=== PATIENT | male | born 1950 | race Caucasian/White ===

== ENCOUNTER → 2017-05-17 | Outpatient (CLI) | payer OTHER, MEDICARE ==
[~2017-05-17] VITALS: Ht 177.8 cm; Wt 106.6 kg
[~2017-05-17] MED LIST: ATENOLOL 50MG T50 M1 PO; DICLOFENAC SODI75 MG PO; OMEPRAZOLE20 M2 PO; SELENIMIN200 MCG PO; SIMVASTATIN40 MG PO; TRAZODONE HCL50 MG PO
--- NOTE | ~2017-05-17 | HPC ---
[facility] [address] [place] [address] PAIN MANAGEMENT CONSULTATION Name: RUTHIE MATA JR Room #: REG [facility].#: [id number] Admission: 05/17/17 Attend Phys: Michael Thompson MD Discharge: Date of : 48 Report #: [id number] THIS REPORT FOR: //name// CC: Alcon Davis MD DATE OF SERVICE: 05/17/2017 CHIEF COMPLAINT: Pain in the back and down into the right leg. FOLLOWUP HISTORY: The patient is a 66-year-old gentleman who has been referred to the pain clinic for evaluation of back and leg pain. He is experiencing pain, which has been problematic since April 13. He is experiencing pain which radiates down into his right low back, buttock and into the right leg. He notes that the pain is made worse with walking, standing and activities of daily living. He rates his pain as 5/10 at this juncture. There is burning, shooting and sharp component to it; sitting down in a recliner can provide some relief. He has tried diclofenac 75 mg. He has not had back surgery. The patient has undergone physical therapy. ALLERGIES: DEMEROL. MEDICATIONS: Diclofenac 75 mg b.i.d., Trazodone 50 mg at bedtime, omeprazole 20 mg daily, simvastatin 40 mg daily, atenolol 50 mg daily, selenium 200 mcg. PAST MEDICAL HISTORY: Rheumatic fever, hypertension, fractured leg with ORIF. PAST SURGICAL HISTORY: Carpal tunnel, right hand, 11/22/2010; deviated septum 01/2009; vasectomy 1974; broken leg with ORIF IM placement 04/2012. SOCIAL HISTORY: He is retired, has not worked in the last 7 years. Denies use of tobacco at this juncture. Drinks 5-7 alcoholic beverages per week. REVIEW OF SYSTEMS: A 14-point indicates generally good health, fatigue and weakness, cataracts, hearing loss, numbness and tingling sensation in the lower extremities as described in the HPI above. LABORATORY DATA: MRI of the lumbar spine dated 04/24/2017 reveals; 1. L3-L4 disk space narrowing and disk desiccation. There is a subtle posterior zone of hyperintensity consistent with a small annular tear. The bulging is slightly paracentric to the right and greatest on the right lateral recess. There is moderate bilateral hypertrophic degenerative facet disease and interspinal spurring. Ligamentum flavum is thickened at 4 mm. There is right [address] [address] PAIN MANAGEMENT CONSULTATION Name: RUTHIE MATA V Room #: REG [facility]#: [id number] Admission: 05/17/17 Attend Phys: Michael Thompson MD Discharge: Date of : 48 Report #: [id number] lateral recess narrowing and bilateral neural foraminal stenosis with effacement of the undersurface of both exiting L3 nerves. 2. L4-L5 broad-based left paracentral disk protrusion. There is hyperintense signal noted within the disk protrusion measuring 10 mm transverse consistent with an annular tear. There is left lateral recess narrowing and effacement of the left L5 nerve root within the lateral recess. The AP diameter of the central canal is 10 mm. There is mild bilateral neural foraminal narrowing with mild effacement of the undersurface of the right L4 nerve. There is mild facet arthrosis with mild ligamentum flavum thickening at 4 mm. 2. L5-S1 unremarkable. PHYSICAL EXAMINATION: Blood pressure 124/58, pulse 63, respiratory rate 16, room air saturation 97. Height 5 feet 10 inches, weight 235 pounds, BMI is 33. The patient has pain in the low back area with radiation down into the left lower extremity in the L5-S1 distribution as well as pain in the right side. Pain is more problematic on the right today. IMPRESSION: 1. Lumbar radiculopathy, L5-S1 on the right today. 2. History of meralgia paresthetica, right leg. 3. Lumbar spondylosis. 4. Hypertension. RECOMMENDATIONS: We discussed the treatment options with the patient. A model was used to indicate the area of probable pathology. Risks and benefits of an epidural steroid injection were discussed. The patient elects to proceed. PROCEDURE NOTE: The patient was placed in the prone position. Fluoroscopy was used to identify the L5-S1 interspace on the right. This area had been sterilely prepped with Betadine and infiltrated with 0.25% bupivacaine. Total of 80 mg Depo-Medrol, 40 mg triamcinolone and 2 mL of 0.25% bupivacaine was injected. The patient tolerated the procedure well. Fluoroscopy time of 6 seconds was used. We had already discussed the possible complications which could include but are not limited to infection, increased muscle soreness, headache, bleeding and muscle trauma as well as nerve trauma. By: [id number] Michael Thompson MD /
[2017-05-17 13:11] VITALS: BP 124/58
== END | disposition home or self-care (01) ==
LOC: PAIN 07:32
DX: M47.26 Other spondylosis with radiculopathy, lumbar region (principal); I10 Essential (primary) hypertension; R20.8 Other disturbances of skin sensation; Z68.33 Body mass index [BMI] 33.0-33.9, adult; Z98.890 Other specified postprocedural states; Z88.8 Allergy status to other drugs, medicaments and biological substances; Z79.899 Other long term (current) drug therapy; M54.16 Radiculopathy, lumbar region

== ENCOUNTER → 2017-09-27 | Outpatient (CLI) | payer OTHER, MEDICARE ==
[~2017-09-27] VITALS: Ht 177.8 cm; Wt 105.2 kg
[~2017-09-27] MED LIST changes: -ATENOLOL 50MG T50 M1 PO; +BAYER CHEWABLE81 MG PO; +EFFIENT10 MG PO; +HYDROCODONE-AP1 EAC6 PO; +LIPITOR80 MG PO; +LISINOPRIL10 MG PO; +LOPRESSOR50 PO; +MEDROLDOSEPACK PO; +NEURONTIN600 MG PO; +NITROGLYCERIN0.4 MG SUBLING; +PERCOCET 10-321 EACH PO; +VIAGRA100 MG PO
--- NOTE | ~2017-09-27 | HPC ---
[facility] [address] [address] PAIN MANAGEMENT CONSULTATION Name: RUTHIE MATA JR Room #: REG [facility] Neil.#: [id number] Admission: 09/27/17 Attend Phys: Michael Thompson MD Discharge: Date of : 48 Report #: [id number] THIS REPORT FOR: //name// CC: Alcon No DATE OF SERVICE: 09/27/2017 FOLLOWUP COMPLAINT: "Pain improved, but I noticed some worsening of the pain after I stood around doing some baking." FOLLOWUP HISTORY: The patient is a 66-year-old gentleman who has been seen in the pain clinic because of lumbar radiculopathy. He has been having pain and discomfort in the right L5-S1 dermatomal distribution. He has undergone epidural steroid injections and gleaned benefits from this. He has noted over the last few weeks some increase in pain and discomfort. He denies any new bowel or bladder dysfunction. Notes that the pain is worse when he gets up in the morning and gets somewhat better during the day, but still is quite problematic. He continues to have pain and discomfort, which radiates down into his right buttock, right thigh and the calf. He was given some gabapentin to take. He finds that that has helped some of the pain in the right lower calf, but still finds that the pain is still uncomfortable and rates it as a 4 with activity and a 3 while sitting. Still walking with a limp because of this. He has had no problem with the wound healing. MEDICATIONS: Neurontin 600 mg b.i.d., Percocet 10/325 one p.o. q.6 hours p.r.n. pain, aspirin 81 mg tablet, Voltaren 75 mg 1 p.o. b.i.d., trazodone 50 mg at bedtime, omeprazole 20 mg daily, Zocor 40 mg in the evening, metoprolol 50 mg daily, and selenium 200 mcg. PHYSICAL EXAMINATION: VITAL SIGNS: Blood pressure 132/77, pulse 60, respiratory rate 16, and room air saturation 97%. Height 5 feet 10 inches, weight 233 pounds, and BMI is 33. The patient has not fallen since we saw him last. Has pain and discomfort in the L5-S1 distribution of his right leg. HEENT: Unremarkable. NECK: Supple without adenopathy. CHEST: Clear. HEART: Regular rate. ABDOMEN: Nontender. NEUROLOGIC: The patient sits in his chair with his right leg extended. He is in a leaning position leaning backward. Complains of pain and discomfort with a positive straight leg raise on the right. Has pain in the right buttock radiating down the posterior portion of his thigh down into the calf area. Notes that the pain in the anterior portion of [place] [address] PAIN MANAGEMENT CONSULTATION Name: RUTHIE MATA JR Room #: REG [facility].#: [id number] Admission: 09/27/17 Attend Phys: Michael Thompson MD Discharge: Date of : 48 Report #: [id number] problematic since the use of gabapentin/Neurontin. The patient walks with an antalgic limp favoring his right leg. IMPRESSION: 1. Lumbar radiculopathy, L5-S1 distribution - improved after epidural steroid injection by greater than 50%. 2. The patient has undergone surgery. He had a surgeon, feels that he is continuing to heal reasonably well. 3. History of meralgia paresthetica involving the right leg. 4. Lumbar spondylosis. 5. Hypertension. 6. Hypercholesterolemia. RECOMMENDATIONS: We discussed treatment options with the patient. Risks and benefits of an epidural steroid injection were again discussed. Possible complications were explained. They could include, but are not limited to infection, increased muscle soreness, headache, bleeding, and nerve damage. The patient elects to proceed. PROCEDURE NOTE: The patient was placed in the prone position. Fluoroscopy was used to identify the L5-S1 interspace. This area had been sterilely prepped with Betadine and infiltrated with 0.25% bupivacaine. After appropriate placement of the needle using fluoroscopy in the anterior and lateral positioning, a 17-gauge Tuohy with loss of resistance technique was used to gain access to the epidural space. There was no CSF, heme, or paresthesia. A total of 80 mg Depo-Medrol, 40 mg triamcinolone, and 2 mL of 0.25% bupivacaine was injected. The patient tolerated the procedure well. Band-Aid was placed in the incision site, which was not bleeding. He was then taken to the recovery room where he remained for an appropriate amount of time. He will follow up in the future as needed. He will continue with his current medical regimen of Voltaren as a nonsteroidal anti-inflammatory medication, gabapentin to help with the nerve pain and irritation, and hydrocodone p.r.n. for worsening of leg pain. We would like to thank you for letting us participate in his care. We hope he continues to improve. <ELECTRONICALLY SIGNED> By: Michael Thompson MD 12/06/17 1121 [id number] [id number] NKalia Thompson MD /nt
[2017-09-27 10:37] VITALS: BP 132/77
== END | disposition home or self-care (01) ==
LOC: PAIN 06:12
DX: M47.26 Other spondylosis with radiculopathy, lumbar region (principal); G89.29 Other chronic pain; I10 Essential (primary) hypertension; E78.00 Pure hypercholesterolemia, unspecified; G57.11 Meralgia paresthetica, right lower limb; Z98.890 Other specified postprocedural states; Z79.899 Other long term (current) drug therapy; Z88.8 Allergy status to other drugs, medicaments and biological substances; Z79.82 Long term (current) use of aspirin; Z79.891 Long term (current) use of opiate analgesic

== ENCOUNTER → 2018-01-10 | Outpatient (CLI) | payer OTHER, MEDICARE ==
[~2018-01-10] VITALS: Ht 177.8 cm; Wt 104.0 kg
[~2018-01-10] MED LIST changes: -EFFIENT10 MG PO; -LIPITOR80 MG PO; -LISINOPRIL10 MG PO; -MEDROLDOSEPACK PO; -NITROGLYCERIN0.4 MG SUBLING; -VIAGRA100 MG PO
--- NOTE | ~2018-01-10 | HPC ---
[facility] [address] [place] [address] PAIN MANAGEMENT CONSULTATION Name: RUTHIE MATA Annamarie AMADO Room #: REG [facility] M.Suraj.#: [id number] Admission: 01/10/18 Attend Phys: Michael Thompson MD Discharge: Date of : 48 Report #: [id number] THIS REPORT FOR: //name// CC: Alcon No DATE OF SERVICE: 01/10/2018 FOLLOWUP COMPLAINT: Pain radiating down into the low back, right buttocks and outer calf. FOLLOWUP HISTORY: The patient is a 67-year-old gentleman who has been seen in the pain clinic in the past because of lumbar radiculopathy. He suffers from pain and discomfort down in the L5-S1 distribution. He has undergone epidural steroid injection in the past and gleaned benefits from this. He is experiencing some tingling tenderness and the sensation that his leg has been hit by a hammer. Pain is worse when he is walking, standing and improves somewhat when he lies in recliner and repositions his leg in and out were positioned. He has had epidural steroid injections and clean benefit from that. He returns today because the pain still was problematic and he rates it as an 8/10. He would like to proceed with another epidural steroid injection. Denies any change in bowel or bladder function. ALLERGIES: DEMEROL, ROPINIROLE. CURRENT MEDICATIONS: Neurontin 600 mg b.i.d., Percocet 10/325 one p.o. q. 6 hours p.r.n. pain, aspirin 81 mg, Voltaren 75 mg b.i.d., trazodone 50 mg at bedtime, omeprazole 20 mg daily, Zocor 40 mg in the evening, metoprolol 50 mg daily, selenium 200 mcg. PAIN CLINIC ASSESSMENT: 1. History of osteoarthritis. The patient has a history of lumbar spondylosis. 2. Height 5 feet 10 inches, weight 229 pounds, BMI is 32. 3. Vital Signs: Blood pressure 122/61, pulse 60, respiratory rate 16, room air saturation 97%. Pain intensity 05/04. 4. Fall risk. The patient has not fallen in the last 3 months. 5. Blood thinner. The patient is not on a blood thinner. 6. History of hypertension. The patient is being treated for hypertension. 7. Opioid therapy. The patient is not on opioid therapy contract. 8. Risk assessment tool. 9. Functional assessment tool. 10. Recreational drug use. 11. Tobacco. The patient has never smoked. 12. Alcohol. The patient drinks 5-6 alcoholic [place] [address] PAIN MANAGEMENT CONSULTATION Name: RUTHIE MATA V Room #: REG [facility]#: [id number] Admission: 01/10/18 Attend Phys: Michael Thompson MD Discharge: Date of : 48 Report #: [id number] PHYSICAL EXAMINATION: GENERAL: The patient is a well-developed white male. He appears his stated age. He is alert and oriented x 3. Affect is appropriate. Speech is fluent. HEENT: Normocephalic, atraumatic. Extraocular eye muscles intact. Sclerae nonicteric. Hearing within normal limits. Moist buccal membranes. NECK: Without adenopathy, bruits or JVD. HEART: Regular rate. ABDOMEN: Nontender. MUSCULOSKELETAL: Without significant scoliosis, kyphosis or lordosis. The patient has pain and discomfort radiating down to the right buttocks, right thigh and into his calf. He has received about 50% improvement in epidural steroid injection in the past. IMPRESSION: 1. Lumbar radiculopathy, L5-S1 distribution improved about 50% after the last injection. 2. History of meralgia paresthetica involving the right leg. 3. Lumbar spondylosis. 4. Hypertension. 5. Hypercholesterolemia. RECOMMENDATIONS: We discussed treatment options with the patient. Risks and benefits of another epidural steroid injection were again reviewed. They include but are not limited to infection, increased muscle soreness, headache, bleeding, worsening of pain, improvement in pain, spinal headache, nerve damage. PROCEDURE NOTE: The patient was assisted to the OR table. He was then helped in place. His lower back area was sterilely prepped with Betadine. Fluoroscopy using anterior, posterior as well as lateral imaging was used to identify the L5-S1 interspace. This area had been sterilely prepped with Betadine and infiltrated with 0.25% bupivacaine. Total of 80 mg Depo-Medrol, 40 mg triamcinolone and 2 mL of 0.25% bupivacaine was injected. The patient tolerated the procedure well. There were no complications. He remained in the Pain Clinic for appropriate amount of time. Total of 3 seconds fluoroscopy time was used. The patient's pain decreased from 8-1 at the time of discharge. He will follow up in the future as needed. We would like to thank you for letting us participate in his care. We hope he continues to improve. By: [id number] Michael Thompson MD /COY
[2018-01-10 09:35] VITALS: BP 122/61
== END | disposition home or self-care (01) ==
LOC: PAIN 06:58
DX: M54.16 Radiculopathy, lumbar region (principal); G89.29 Other chronic pain; M47.896 Other spondylosis, lumbar region; I10 Essential (primary) hypertension; E78.00 Pure hypercholesterolemia, unspecified; Z79.899 Other long term (current) drug therapy; Z79.82 Long term (current) use of aspirin; Z79.891 Long term (current) use of opiate analgesic; Z88.8 Allergy status to other drugs, medicaments and biological substances; Z98.890 Other specified postprocedural states

== ENCOUNTER 2019-10-17 06:12 | Inpatient (IN) | payer OTHER, MEDICARE ==
[2019-10-09 09:09] LABS: HEMATOCRIT 36.8 % (42.0-52.0); HEMOGLOBIN 12.6 gm/dL (14.0-18.0); MCH 31.9 pg (26.0-34.0); MCHC 34.1 g/dL (28.0-37.0); MCV 93.4 fL (80.0-100.0); RBC 3.94 mil/uL (4.50-6.00); RDW 13.2 % (10.5-14.5); WBC 6.6 thou/uL (4.0-11.0)
[2019-10-09 09:17] LABS: URINE BILIRUBIN NEGATIVE (Negative); URINE BLOOD TRACE (Negative); URINE CLARITY CLEAR; URINE COLOR YELLOW; URINE GLUCOSE-RANDOM* NEGATIVE (Negative); URINE KETONES NEGATIVE (Negative); URINE LEUKOCYTES-REFLEX NEGATIVE (Negative); URINE NITRITE-REFLEX NEGATIVE (Negative); URINE PROTEIN (DIPSTICK) NEGATIVE (Negative); URINE SPECIFIC GRAVITY 1.025 (1.005-1.035); URINE UROBILINOGEN 0.2 E.U./dl (0.2-1.0)
[2019-10-09 09:18] LABS: ALBUMIN 3.7 g/dL (3.4-5.0); CALCIUM 9.1 mg/dL (8.5-10.1); CREATININE 1.3 mg/dL (0.7-1.3); POTASSIUM 4.8 mmol/L (3.5-5.1)
[2019-10-09 09:20] LABS: PROTIME 10.1 Seconds (9.3-11.4)
[~2019-10-17] VITALS: Ht 177.8 cm; Wt 99.8 kg
--- NOTE | ~2019-10-17 | HC ---
[facility] [place] [address] [place] [address] CONSULTATION Name: RUTHIE MATA JR Room #: 206-P [facility] IN M.R.#: [id number] Admission: 10/17/19 Attend Phys: Vladimir Zavaleta MD Discharge: Date of : 48 Report #: [id number] THIS REPORT FOR: //name// CC: Vladimir Frank DATE OF SERVICE: 10/21/2019 HISTORY OF PRESENT ILLNESS: This is a 68-year-old male patient who was evaluated by me for neurological etiology for the patient's vision problem. He describes his vision problem that in the left eye there is a line in the center of the middle problem. Above the eye, it is all frederick. Below the eye it is all normal. This started spontaneously without any trauma. It looks like it started yesterday. He has not recovered, but has not become any worse either. Neurology consult was requested to evaluate the patient for TIA or CVA. I tried to see this patient twice this morning, but the patient was not available to be seen that time. So he was seen this evening. Since then, he had an MRI and MRA. I cannot neither find the film nor the report. The patient is pretty insistent that he had it and the records indicate that he had an MRI of the brain and MRA of the [place]. REVIEW OF SYSTEMS: His 14-point review of system was carried out. He had left knee problems for which he had a surgery done. He has a history of hypertension. He does have a history of coronary artery disease. He is on medications including gabapentin. That was his relevant 14-point review of system. PAST MEDICAL HISTORY: Negative for any stroke or TIA. FAMILY HISTORY: Unremarkable. PHYSICAL EXAMINATION: Indicate he is alert, responsive. His speech, concentration, fund of knowledge and memory is normal. Cranial nerve examination 2-12 indicates that his visual field is actually intact. He can count visual field in all locations, but he complained that everything is frederick in the upper half of the eye both in temporal and nasal alvarez. He does not have any other focal neurological deficit in the cranial nerves or neuromuscular allowing for his surgery. There is no meningeal sign. There is no carotid bruit. He is a very well-built individual. He does not have any dysmorphic features of eyes, ears and face. His vision and hearing looks adequate except as described above in the left eye. His blood pressure is 171/66, respiration is 20, pulse is 90, temperature is 98.6. LABORATORY DATA: White count is 11.6. Sodium is low at 131. Estimated GFR [place] 63[place] [id number] CONSULTATION Name: RUTHIE MATA Annamarie Room #: 206-P [facility] IN .R.#: [id number] Admission: 10/17/19 Attend Phys: Vladimir Zavaleta MD Discharge: Date of : 48 Report #: [id number] IMPRESSION: It is unlikely that the patient's symptoms are because of neurological etiology. We will try to trace down the MRI. If that is also unremarkable, then neurological etiology will be even less likely. The emphasis should be to exclude any ophthalmology pathology in this patient. I discussed that aspect with the patient. I did tell him that he needs to see an outreach associate as soon as possible because there is only a limited time when ophthalmology conditions can be evaluated and managed. Even if he did have a neurological etiology like stroke, nothing can be done because symptom appeared to be much more than 24-hour duration and he just had a recent major surgery. We will try to locate the MRI and MRA to be sure, but the emphasis should be to get an Ophthalmology evaluation as soon as possible. This patient will be discussed with the security intelligence analyst. By: [id number] Linden Nuñez MD /nt
[~2019-10-17 06:12] MED LIST changes: +EFFIENT10 MG PO; +IRBESARTAN150 MG PO; +LIPITOR80 MG PO; +LISINOPRIL10 MG PO; +MEDROLDOSEPACK PO; +NITROGLYCERIN0.4 MG SUBLING; +VIAGRA100 MG PO
[2019-10-17 07:30] VITALS: BP 118/55
--- NOTE | 2019-10-17 13:28 | NUR ---
PT ARRIVED FROM POST OP AT 1040. AT BEDSIDE. ADMISSION PAPERWORK COMPLETETED. IV FLUIDS STARTED. PICCO DRESSING INTACT TO LEFT KNEE. ICE PACK FOR COMFORT. V.S. 98.0 18 71 122/64 O2 SAT =96%RA HEIGHT = 5' 10" PT CLEAR LIQUID DIET. REGULAR FOR DINNER. PT GIVEN PRN PAIN MED. HEMO VAC EMPTIED HAD 350 CC. PT PLEASANT AND COOPERATIVE WITH CARE.
[2019-10-17 15:48] VITALS: BP 150/55
[2019-10-17 19:01] VITALS: BP 131/51
--- NOTE | 2019-10-18 02:34 | NUR ---
L KNEE WITH SHIRLEY DRSG AND HEMOVAC. ICE HARJIT APPLIED ON AND OFF. PT USING URINAL.AFEBRILE. PAIN WELL CONTROLLED WITH PO MEDS. PT MOVING BOTH LEGS MUCH POSSIBLE.AFEBRILE.PROGRESSING TOWARDS GOALS.
[2019-10-18 03:54] VITALS: BP 148/52
[2019-10-18 05:43] LABS: HEMATOCRIT 27.9 % (42.0-52.0); HEMOGLOBIN 9.4 gm/dL (14.0-18.0); MCH 32.1 pg (26.0-34.0); MCHC 33.6 g/dL (28.0-37.0); MCV 95.3 fL (80.0-100.0); RBC 2.93 mil/uL (4.50-6.00); RDW 13.2 % (10.5-14.5); WBC 13.8 thou/uL (4.0-11.0)
[2019-10-18 07:42] VITALS: BP 154/52
--- NOTE | 2019-10-18 07:51 | O ---
[facility] [place] [address] [place] [address] OPERATIVE REPORT Name: RUTHIE MATA JR Room #: 441-P ADM IN M.R.#: [id number] Admission: 10/17/19 Attend Phys: Vladimir Zavaleta MD Discharge: Date of : 48 Report #: [id number] THIS REPORT FOR: //name// CC: Vladimir Frank DATE OF SERVICE: 10/17/2019 PREOPERATIVE DIAGNOSIS: End-stage degenerative arthritis, left knee. POSTOPERATIVE DIAGNOSIS: End-stage degenerative arthritis, left knee. PROCEDURE: Left total knee arthroplasty. SURGEON: Vladimir Zavaleta MD INDICATIONS: This active 68-year-old gentleman has problems with degenerative arthritis in both knees. The right side is related to previous trauma. The left side is more generalized degenerative change, both knees are uncomfortable, but the left knee is the most severe at this point, he has tried conservative measures without much benefit. He has decided to go ahead with left total knee arthroplasty. DESCRIPTION OF PROCEDURE: The patient was taken to the operating room where he was placed under general anesthesia. A femoral nerve block was also applied. The left lower extremity was meticulously prepped and draped. A thigh tourniquet was applied and inflated to 300 mmHg. An anterior longitudinal skin incision was made and carried through the medial retinaculum and the patella was reflected laterally and marked degenerative change in all 3 compartments was noted. The knee was noted to be in moderate varus malalignment. The Green and Nephew knee system was utilized. Intramedullary guides were used on both the femur and the tibia. The femur was cut in 5 degrees of valgus and the tibia cut perpendicular to the long axis of the bone. This resulted in satisfactory improvement in his preoperative varus malalignment. The femur was best suited for a size 6 left femoral component. The tibia was best suited for a size 5 left tibial component. A trial reduction was performed and a 10 mm polyethylene insert resulted in satisfactory alignment, range of motion and stability. Sufficient bone was resected from the distal femur to correct the mild preoperative flexion contracture with the new trials in place, the knee demonstrated full knee extension and flexion beyond 130 degrees with good stability in varus valgus stress. The patellar surface was resected and a 35 mm patellar button fit nicely. Appropriate anchor holes were created. A trial button was applied and the patella seems to track nicely and appears to be in good position. The trial components were removed. The bony surfaces were thoroughly irrigated [address] [address] OPERATIVE REPORT Name: EWACASTRORUTHIE De Luna Room #: 441-P [facility] IN ..#: [id number] Admission: 10/17/19 Attend Phys: Vladimir Zavaleta MD Discharge: Date of : 48 Report #: [id number] and dried. The intramedullary canal was blocked with a bone block on both the femoral and tibial sides. Methyl methacrylate cement was mixed and injected into the porous surface of the proximal tibia. The Green and Nephew left size 5 Lori II nonporous tibial baseplate was inserted. This was positioned appropriately and impacted into place. Excess cement was removed from around its margin. A size 10 mm cruciate retaining polyethylene insert was then inserted. This was snapped into position and seated nicely and appeared to be secure. A size 6 left cruciate retaining porous Legion femoral component was applied. A small amount of cement was used distally at the anchor lugs where the bone was mildly soft. The component seemed to seat nicely and appeared to be very secure. A 35 mm patellar button was cemented into place using appropriate anchor holes and cement. This was secured with a patellar clamp until the cement had fully hardened. All excess cement was removed from around its margin. Once the components were secure, range of motion, alignment and stability were once again assessed and felt to be satisfactory. The knee demonstrates full knee extension and flexion beyond 130 degrees. There was good stability with varus valgus stress. The patellar tracks nicely and appears to be stable. The wound was copiously irrigated. A single Hemovac was left in the wound exiting through a separate stab incision. The fascia was closed with multiple #1 Vicryl sutures. The tourniquet was deflated after a total tourniquet time of 56 minutes. Good hemostasis was confirmed. The subcutaneous tissues were closed with 0 Monocryl. The skin was closed with skin phoebe. A sterile dressing was applied. The patient was awakened and returned to recovery room in good condition. <ELECTRONICALLY SIGNED> By: Vladimir Zavaleta MD 10/18/19 0751 [id number] [id number] Vladimir Zavaleta MD /nt
--- NOTE | 2019-10-18 15:50 | NUR ---
ASSESSMENT-PT LIVES AT HOME WITH HIS . PRIOR TO ADMISSION PT WAS USING A WALKING STICK TO GET AROUND AND DID HIS OWN ADLS. ABLE TO ASSIST AT HOME AND THEY HAVE A DTR IN THE AREA. PRIOR PT DROVE. PT HAS 3 STEPS TO ENTER THEN BEDROOM/BATHROOM ON MAIN LEVEL. THERE ARE 12 STEPS TO BEASEMENT BUT HE WOULD NOT NEED TO GO DOWN THERE. WILL NEED TO SEE HOW HE CARLISLE WITH THERAPY TO DETERMINE IF HH VS OUTPT VS SNF IS APPROPRIATE FOR PT WELL DISCUSS WITH DR CONTRERAS. FOLLOWING TO ASSIST WITH DC PLANNING.
[2019-10-18 17:08] VITALS: BP 172/58
[2019-10-18 18:33] LABS: CALCIUM 8.6 mg/dL (8.5-10.1); CREATININE 1.6 mg/dL (0.7-1.3); POTASSIUM 4.6 mmol/L (3.5-5.1)
[2019-10-18 19:10] VITALS: BP 157/61
--- NOTE | 2019-10-18 21:45 | NUR ---
1909 ASSUMED CARE OF PT AFTER BEDSIDE REPORT. 2029 ASSESSMENT COMPLETED, SEE ASSESSMENT TAB. MEDS GIVEN PER NOV. PT WITH PAIN TO LEFT KNEE, MEDS GIVEN. PT ENCOURAGED TO COUGH AND DEEP BREATHE, PT UNDERSTANDS HE IS TO CALL IF HE WANTS TO GET UP BECAUSE HE IS A HOGH RISK FOR FALLS, PT WITH ICE PACKS TO LEFT KNEE, AND GWYN POLLACK/SCDS IN PLAVE, AT BEDSIDE, NO S/SX OF ANXIETY AT THIS TIME. PEDAL PULSES PALPABLE BILATERALLY, PT ABLE TO LIFT LEFT KNEE, BUT IS WEAK SECONDARY TO PAINFUULNESS. WILL CONTINUE WITH HOURLY ROUNDING
[2019-10-19 04:45] VITALS: BP 138/88
[2019-10-19 05:33] LABS: HEMATOCRIT 26.9 % (42.0-52.0); HEMOGLOBIN 9.1 gm/dL (14.0-18.0); MCH 31.9 pg (26.0-34.0); MCHC 33.7 g/dL (28.0-37.0); MCV 94.8 fL (80.0-100.0); RBC 2.84 mil/uL (4.50-6.00); RDW 13.2 % (10.5-14.5); WBC 10.6 thou/uL (4.0-11.0)
[2019-10-19 05:41] LABS: CALCIUM 8.1 mg/dL (8.5-10.1); CREATININE 1.3 mg/dL (0.7-1.3); POTASSIUM 4.5 mmol/L (3.5-5.1)
[2019-10-19 08:00] VITALS: BP 115/41
[2019-10-19 17:24] VITALS: BP 153/63
[2019-10-19 20:45] VITALS: BP 143/43
--- NOTE | 2019-10-20 01:31 | NUR ---
10/19/19 190 ASSUMED CARE OF PT AFTER BEDSIDE REPORT. 1929 BASELINE ASSESSMENT COMPLETED, SEE ASSESSMENT. ICE BAGS TO L KNEE FILLED AND MEDS GIVEN PER NOV FOR PAIN. PT ENCOURAGED TO USE IS OFTEN HE THINKS ABOUT IT, AND EDUCATED ABOUT THE DANGER OF PNEUMONIA. PT ENCOURAGED TO MOVE KNEE OFTEN POSSIBLE, PT STATES HE WAS UP WITH PT TWICE TODAY. REMAINS AT BEDSIDE. GWYN HOSE AND SCDS IN PLACE AND FALL PRECAUTIONS IN PLACE. 2299 REDNESS TO LFA IV SITE NOTED, SO IV DISCONTINUED WITH CATHETER INTACT, NEW IV STARTED TO R WRIST WITH 1 ATTEMPT SUCCESSFUL. 10/20/19 010 PT IS REFUSING ICE BAGS TO L KNEE UNTIL HE WAKES IN THE MORNING. HOURLY ROUNDING CONTINUES.
[2019-10-20 04:17] VITALS: BP 141/59
[2019-10-20 05:42] LABS: HEMATOCRIT 23.5 % (42.0-52.0); HEMOGLOBIN 8.2 gm/dL (14.0-18.0); MCH 32.5 pg (26.0-34.0); MCHC 34.7 g/dL (28.0-37.0); MCV 93.6 fL (80.0-100.0); RBC 2.51 mil/uL (4.50-6.00); RDW 13.1 % (10.5-14.5); WBC 9.2 thou/uL (4.0-11.0)
[2019-10-20 08:08] VITALS: BP 132/36
--- NOTE | 2019-10-20 16:07 | NUR ---
Assumed care of pt at 0700. Pt a&ox4. Dressing d/c/i. Prn pain meds given per pt request. Pain is controlled. Pt worked with physical therapy twice today. Physical therapy voices some concerns about patient not being able to safely discharge home yet. Pt is not moving with physical therapy according to plan due to high pain when up. IV pain med administered prior to therapy per pt request. Pt able to walk from one side of the bed to the other. Very slow progress. GWYN анна and SCDs in place. Ice packs in place. Family at bedside. Fall precautions in place. Will continue to monitor.
[2019-10-20 17:48] VITALS: BP 143/50
[2019-10-20 19:48] VITALS: BP 148/38
--- NOTE | 2019-10-21 02:32 | NUR ---
PT WAS OBSERVED WATCHING TV IN THE COMPANY OF HIS AT SHIFT CH[facility].PT C/O PAIN ON HIS L KNEE,MANAGED WITH MED.PT STATED THAT HE WANTS TO ALRENATE HIS PAIN MEDS SO THAT HE CAN GET HIS MEDS Q2 HRS.PT ENCOURAGED TO CALL FOR THE PRN PAIN MED.PT USING HIS URINAL AT BEDSIDE,STATED THAT HE DOESN'T WANT TO GET UP DUE TO PAIN.PT ENCOURAGED TO START WORKING WITH PT SO HE CAN DC HOME SINCE HE IS REFUSING REHAB.ICE PACK TO HIS L KNEE.PT RESTING ON HIS BED AT THIS TIME.PT SLEEPING WITH HIS CPAP AT THIS TIME.FALL PRECAUTIONS IN PLACE,CALL LIGHT WITHIN REACH.
[2019-10-21 04:45] VITALS: BP 124/36
[2019-10-21 08:22] VITALS: BP 174/40
--- NOTE | 2019-10-21 10:55 | NUR ---
Assumed care of pt at 0700. Pt a&ox4. Prn pain meds administered per pt request. GWYN jj and SCDs in place. Worked with PT/OT. Pt c/o some vision changes. Provider aware. Pt will be transferred to telemetry unit, room 206. Right before pt going to MRI orthopedic surgeon states dressin on left knee will need to be chamged sometime today. Report given to FLACO Ace.
[2019-10-21 12:17] LABS: HEMATOCRIT 24.9 % (42.0-52.0); MCH 31.6 pg (26.0-34.0); MCHC 33.6 g/dL (28.0-37.0); RBC 2.64 mil/uL (4.50-6.00); RDW 12.8 % (10.5-14.5); WBC 11.6 thou/uL (4.0-11.0)
[2019-10-21 12:20] LABS: HEMOGLOBIN 8.4 gm/dL (14.0-18.0)
[2019-10-21 12:30] LABS: ALBUMIN 3.1 g/dL (3.4-5.0); CREATININE 1.6 mg/dL (0.7-1.3); MAGNESIUM 2.4 mg/dL (1.8-2.4); POTASSIUM 3.9 mmol/L (3.5-5.1); TOTAL BILIRUBIN 0.7 mg/dL (<0.1-1.0); TOTAL PROTEIN 7.2 g/dL (6.4-8.2)
[2019-10-21 12:38] VITALS: BP 178/44
--- NOTE | 2019-10-21 14:31 | NUR ---
PT ARRIVED FROM MRI, ALERT AND ORIENTED X4, WAS GRIMACING AND CRYING IN PAIN WHEN TRANSFERRED FROM WHEELCHAIR TO BED STATING HIS LEFT KNEE HURT. PT ASSESSED, ORIENTED TO ROOM, STAFF, AND PLAN OF CARE, AT SIDE ALSO ORIENTED AND VERBALIZED UNDERSTANDING, CALL LIGHT IN BED, WILL MONITOR AND TREAT PAIN.
--- NOTE | 2019-10-21 15:28 | EKG ---
[address] [address] ELECTROCARDIOGRAM REPORT Name: RUTHIE MATA JR Room #: 206-P ADM IN M.R.#: [id number] Admission: 10/17/19 Attend Phys: Vladimir Zavaleta MD Discharge: Date of : 46 Report #: [id number] THIS REPORT FOR: //name// [facility] Test Date: 2019-10-21 Test Time: 12:57:33 Pat Name: RUTHIE MATA Department: Room: 206 Gender: M Signal Wirer: Ismael QUINTERO : 1950 Requested By: Dominic Medina Order Number: [id number] MD: Marvin Rubio Measurements Intervals [place] Rate: 96 P: 45 MI: 138 QRS: 30 QRSD: 96 T: 56 QT: 346 QTc: 438 Interpretive Statements Sinus rhythm No previous ECG available for comparison Electronically Signed On 10-21-2019 15:27:39 AIRPORT MAINTENANCE CHIEF by Marvin Rubio [email or web address] <ELECTRONICALLY SIGNED> By: Marvin Rubio MD 10/21/19 1527 1257 MD LAYLA Taylor
[2019-10-21 16:15] VITALS: BP 171/66
[2019-10-21 19:43] VITALS: BP 145/51
[2019-10-22 00:16] VITALS: BP 176/59
[2019-10-22 04:25] VITALS: BP 165/89
--- NOTE | 2019-10-22 05:07 | NUR ---
ASSUMED PT CARE AT AROUND 1900, PT IS ALERT AND ORIENTEDX4, SR/ST ON THE MONITOR, DENIES SOB, COMPLAINS OF PAIN TO THE LEFT HIP, ICE BAGS PLACED, CPAP IN PLACE, SHIRLEY DRESSING DCI, RESTED WELL, WILL CONTINUE TO MONITOR
[2019-10-22 07:58] LABS: HEMATOCRIT 24.8 % (42.0-52.0); HEMOGLOBIN 8.6 gm/dL (14.0-18.0); MCH 32.4 pg (26.0-34.0); MCHC 34.5 g/dL (28.0-37.0); MCV 93.9 fL (80.0-100.0); RBC 2.64 mil/uL (4.50-6.00); RDW 13.1 % (10.5-14.5); WBC 9.2 thou/uL (4.0-11.0)
[2019-10-22 08:16] VITALS: BP 164/66
[2019-10-22 08:17] LABS: CALCIUM 8.9 mg/dL (8.5-10.1); CREATININE 1.6 mg/dL (0.7-1.3); MAGNESIUM 2.1 mg/dL (1.8-2.4); POTASSIUM 3.7 mmol/L (3.5-5.1)
--- NOTE | 2019-10-22 16:13 | NUR ---
patient post knee sx transferred to telemetry floor. patient noted to have carotided stenosis. Seen by neurology and opthamology. [facility] evaled and accepted once stable. Patient stable for dc to [facility] today. Discussed with Dr Barrera present. Updated acute rehab. Shantell rod practioner with [facility] sp with Dr Zavaleta who is in agreement. Sp with alerted of transfer to [facility] this evening to room 511. Patient has rehab brochure. He is pleased to be in hospital setting rehab with goal for home.
[2019-10-22 16:28] VITALS: BP 138/60
[2019-10-22 19:42] VITALS: BP 135/53
--- NOTE | 2019-10-22 20:00 | NUR ---
ASSUMED CARE 0700. ALERT X4, ANXIOUS, PAIN MANAGED WITH MEDICATIONS, BRANDIN SOB AND DENIES CHEST PAIN. UP WITH GATE BELT AND WALKER. SEEN BY OPTHAMOLOGIST PATIENT REPORTED THE OPTHAMOLOGIST INDICATED HE HAD FLUIDS ON OPTIC NERVE BECAUSE OF BLOOD PRESSURES AND RELAYED THIS INFROMATIONS TO DR SANCHEZ. PATIENT PARTICIPATED IN PT AND OT TODAY. WILL MOVE TO REHAB ONCE MEDICAL STABLE. CALLS FOR ASSISTANCE
[2019-10-22 21:00] LABS: HEMATOCRIT 22.8 % (42.0-52.0); HEMOGLOBIN 7.9 gm/dL (14.0-18.0)
[2019-10-22 21:23] LABS: PROTIME 10.6 Seconds (9.3-11.4)
[2019-10-22 21:56] LABS: TSH 0.986 uIU/mL (0.358-3.740)
[2019-10-23 03:39] VITALS: BP 142/69
--- NOTE | 2019-10-23 05:31 | NUR ---
ASSUMED PT CARE AT 1900, PT IS ALERT AND ORIENTEDX4, ASSESSMENTS CHARTED, ST/SA ON THE MONITOR,DENIES SOB, COMPLAINS OF PAIN IN THE RIGHT KNEE, PAIN MEDICATION GIVEN PRN WITH PARTIAL RELIEF, ICE BAGS PROVIDED WELL, SHIRLEY DRESSING IN PLACE CDI, CPAP AT NIGHT, VITALS STABLE, RESTED WELL, WILL CONTINUE TO MONITOR
[2019-10-23 07:10] LABS: HEMOGLOBIN 7.9 gm/dL (14.0-18.0); MCH 32.5 pg (26.0-34.0); MCHC 34.2 g/dL (28.0-37.0); RBC 2.43 mil/uL (4.50-6.00); RDW 13.1 % (10.5-14.5); WBC 7.8 thou/uL (4.0-11.0)
[2019-10-23 07:21] LABS: CALCIUM 8.5 mg/dL (8.5-10.1); CREATININE 1.2 mg/dL (0.7-1.3); POTASSIUM 3.7 mmol/L (3.5-5.1)
[2019-10-23 07:50] VITALS: BP 145/78
[2019-10-23 12:03] VITALS: BP 157/70
--- NOTE | 2019-10-23 12:29 | 2DMMODE ---
[facility] [place] [address] 2 D/M-MODE ECHOCARDIOGRAM Name: RUTHIE MATA V Room #: 206-P ADM IN M.R.#: [id number] Admission: 10/17/19 Attend Phys: Gurpreet Umaña Discharge: Date of : 46 Report #: [id number] THIS REPORT FOR: //name// APPROVED REPORT Study performed: 10/23/2019 10:41:00 EXAM: Comprehensive 2D, Doppler, and color-flow Echocardiogram Patient Location: Echo lab Room #: 206 Status: routine BSA: 2.17 HR: 110 bpm BP: 145/78 mmHg Rhythm: Sinus arrhythmia/tachy Other Information Study Quality: Adequate Indications Dizziness. Hx: of CAD, PCI. Heart ranged from 90s-120s 2D Dimensions RVDd: 44.76 mm IVSd: 12.24 (7-11mm) LVOT Diam: 21.38 (18-24mm) LVDd: 51.38 mm PWd: 10.12 (7-11mm) Ascending Ao: 31.36 (22-36mm) LVDs: 33.92 (25-40mm) Aortic Root: 32.83 mm Volumes Left Atrial Volume (Systole) Single Plane 4CH: 49.76 mL Single Plane 2CH: 72.20 mL LA ESV Index: 31.00 mL/m2 Aortic Valve AoV Peak Caesar.: 1.75 m/s AO Peak Gr.: 12.18 mmHg LVOT Max P.31 mmHg LVOT Max V: 1.26 m/s SYDNEY Vmax: 2.58 cm2 Mitral Valve E/A Ratio: 0.8 MV Decel. Time: 218.64 ms [facility] [place] [address] 2 D/M-MODE ECHOCARDIOGRAM Name: RUTHIE MATA V Room #: 206-[facility].#: [id number] Admission: 10/17/19 Attend Phys: Gurpreet Umaña Discharge: Date of : 46 Report #: [id number] E Max Caesar.: 0.75 m/s MV A Caesar.: 0.90 m/s MV PHT: 63.41 ms IVRT: 46.14 ms Pulmonary Valve PV Peak Caesar.: 1.73 m/s PV Peak Gr.: 11.99 mmHg Tricuspid Valve TR Peak Caesar.: 2.76 m/s RAP Estimate: 5.00 mmHg TR Peak Gr.: 31.00 mmHg PA Pressure: 36.00 mmHg Left Ventricle The left ventricle is normal size. There is normal LV segmental wall motion. Mild basal septal hypertrophy is present. Left ventricular systolic function is normal. LVEF is 60-65%. Mild diastolic dysfunction is present (impaired relaxation pattern). Right Ventricle The right ventricle is normal size. The right ventricular systolic function is normal. Atria The left atrium size is normal. The right atrium size is normal. Aortic Valve The aortic valve is normal in structure. No aortic regurgitation is present. There is no aortic valvular stenosis. Mitral Valve The mitral valve is normal in structure. There is no mitral valve regurgitation noted. No evidence of mitral valve stenosis. Tricuspid Valve The tricuspid valve is normal in structure. Mild tricuspid regurgitation. Estimated PAP is 35mmHg. Pulmonic Valve The pulmonary valve is normal in structure. Trace pulmonic regurgitation. Great Vessels The aortic root is normal in size. The ascending aorta is normal in size. IVC is normal in size and collapses >50% with [facility] [address] [place] [address] 2 D/M-MODE ECHOCARDIOGRAM Name: RUTHIE MATA V Room #: 206-P ADM IN .R.#: [id number] Admission: 10/17/19 Attend Phys: Gurpreet Umaña Discharge: Date of : 46 Report #: [id number] inspiration. Pericardium There is no pericardial effusion. <Conclusion> The left ventricle is normal size. Mild basal septal hypertrophy is present. LVEF is 60-65%. Mild diastolic dysfunction is present (impaired relaxation pattern). The right ventricle is normal size. The left atrium size is normal. The aortic valve is normal in structure. There is no mitral valve regurgitation noted. Mild tricuspid regurgitation. Estimated PAP is 35mmHg. The aortic root is normal in size. There is no pericardial effusion. <ELECTRONICALLY SIGNED> By: Nabil Jameson MD, FACC 10/23/19 1228 1228 1228 Nabil Jameson MD, FACC /INF
[2019-10-23 17:50] VITALS: BP 157/77
--- NOTE | 2019-10-23 18:11 | NUR ---
patient did not transfer to [facility] acute rehab last evening. patient with carotid stenosis and need for CTS or neuro radiology. Phys reports Dr Johnson recommended /[facility]. Referral to , internal medicine at capacity likely no bed today, will need new referral in am. Referral to [facility]. Faxed H/P scanned cards and facesheet. Uploaded radiology to [facility]. If patient accepted only location of [facility] accepting. [phone] if need for RN to call [facility] for update. [facility] otherwise to call if accepting. Updated RN on transfer forms completion and arranging [facility]. patient and aware.
--- NOTE | 2019-10-23 18:54 | NUR ---
ASSUMED CARE 0700. ALERT X4, DENIES SOB, VS STABLE, PAIN MANAGED WITH MEDICATIONS, UP WITH WALKER AND GATE BELT POST LEFT TOTAL KNEE. GWYN POLLACK INPLACE. DR DAVID ESCALANTE ROUNDED ON PATIENT NEW ORDERS FOR STEROIDS INPLACE. PATIENT SEEN BY DR LEVINE OFFICE FOR RETINOL EXAM. DR SANCHEZ AND CM HAVE ORDERS FOR PATIENT TO TRANSFER TO [facility]. CHART COPY COMPLETED. TRANSFER PAPERWORK ON FRONT OF [place]. PT AWARE OF POSSIBLE TRANSFER. FALL PRECAUTIONS REMAIN IN PLACE. CALL LIGHT IN REACH.
[2019-10-24 08:57] LABS: GLYCOHEMOGLOBIN (HGB A1C) 5.5 % (4.8-5.6)
== END 2019-10-23 21:00 | DRG 469 ==
LOC: 4S 06:12 → TBA 06:12 → PRE 07:25 → 4S 11:00 → TBA 12:51 → 2N 10-21 11:12 → ENTRNSPT 10-22 11:35 → EDTRNSPTSTS 10-22 11:42 → 2N 10-23 21:00
PROVIDERS: Internal Medicine; ADMIT Orthopaedic Surgery
PROC: 5A09457 Assistance with Respiratory Ventilation, 24-96 Consecutive Hours, Continuous Positive Airway Pressure (ICD-10-PCS; principal; 2019-10-17)
PROC: 0SRD0J9 Replacement of Left Knee Joint with Synthetic Substitute, Cemented, Open Approach (ICD-10-PCS; principal; 2019-10-17)
PROC: 5A09357 Assistance with Respiratory Ventilation, Less than 24 Consecutive Hours, Continuous Positive Airway Pressure (ICD-10-PCS; 2019-10-22)
PROC: 5A09357 Assistance with Respiratory Ventilation, Less than 24 Consecutive Hours, Continuous Positive Airway Pressure (ICD-10-PCS; 2019-10-23)
DX: M17.12 Unilateral primary osteoarthritis, left knee (principal); N17.0 Acute kidney failure with tubular necrosis; I25.10 Atherosclerotic heart disease of native coronary artery without angina pectoris; K21.9 Gastro-esophageal reflux disease without esophagitis; G47.33 Obstructive sleep apnea (adult) (pediatric); K42.9 Umbilical hernia without obstruction or gangrene; H53.452 Other localized visual field defect, left eye; I95.9 Hypotension, unspecified; D64.9 Anemia, unspecified; F41.9 Anxiety disorder, unspecified; D47.3 Essential (hemorrhagic) thrombocythemia; N18.3 Chronic kidney disease, stage 3 (moderate); I12.9 Hypertensive chronic kidney disease with stage 1 through stage 4 chronic kidney disease, or unspecified chronic kidney disease; I65.22 Occlusion and stenosis of left carotid artery; E78.5 Hyperlipidemia, unspecified; Z96.652 Presence of left artificial knee joint; Z88.8 Allergy status to other drugs, medicaments and biological substances; Z79.82 Long term (current) use of aspirin; Z79.891 Long term (current) use of opiate analgesic; Z79.899 Other long term (current) drug therapy; Z82.49 Family history of ischemic heart disease and other diseases of the circulatory system; Z98.42 Cataract extraction status, left eye; Z98.41 Cataract extraction status, right eye; Z86.018 Personal history of other benign neoplasm; Z79.01 Long term (current) use of anticoagulants; Z95.5 Presence of coronary angioplasty implant and graft; Z80.3 Family history of malignant neoplasm of breast
CPT/HCPCS: 10081; 10102; 10797; 50010; 50101; 50415; 50954; 51130; 51225; 51412; 56525; 57095; 57103; 57104; 57180; 62110; 62900; 64039; 70005